=== PATIENT | female | born 1985 | race Caucasian/White ===

== ENCOUNTER 2017-07-28 21:14 | Emergency (ER) | payer MEDICAID, OTHER ==
[~2017-07-28] VITALS: Ht 157.5 cm; Wt 104.3 kg
[2017-07-28 21:39] VITALS: BP 141/65
--- NOTE | 2017-07-28 22:47 | NUR ---
PATIENT TO ER OF2.
--- NOTE | 2017-07-28 23:00 | NUR ---
PATIENT BEING EVALUATED BY DR. CUELLO.
[2017-07-28 23:45] VITALS: BP 132/67
--- NOTE | 2017-07-28 23:45 | NUR ---
Patient discharged with v/s stable. Written and verbal after care instructions given and explained. Patient alert, oriented and verbalized understanding of instructions. Ambulatory with steady gait. All questions addressed prior to discharge. ID band removed. Patient advised to follow up with PMD. Rx of Ibuprofen and Flexeril given. Patient educated on indication of medication including possible reaction and side effects. Opportunity to ask questions provided and answered.
== END 2017-07-28 23:45 | disposition home or self-care (01) ==
LOC: MED 21:14
DX: S13.4XXA Sprain of ligaments of cervical spine, initial encounter (principal); M25.512 Pain in left shoulder; R03.0 Elevated blood-pressure reading, without diagnosis of hypertension; J45.909 Unspecified asthma, uncomplicated; V49.49XA Driver injured in collision with other motor vehicles in traffic accident, initial encounter; Y93.89 Activity, other specified; Y92.89 Other specified places as the place of occurrence of the external cause; Y99.8 Other external cause status
CPT/HCPCS: 71010; 73030; 99284

== ENCOUNTER 2019-08-25 19:57 | Emergency (ER) | payer SELFPAY ==
[~2019-08-25] VITALS: Ht 157.5 cm; Wt 106.6 kg
[2019-08-25 20:06] VITALS: BP 129/84
--- NOTE | 2019-08-25 20:10 | NUR ---
PT TAKEN TO BED 3
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
--- NOTE | 2019-08-25 21:09 | NUR ---
Dr. De La Cruz examining patient.
[2019-08-25] MEDS ORDERED: KETOROLAC 30 MG/ML VIAL IM ONE (21:45)
--- NOTE | 2019-08-25 22:02 | NUR ---
PT RETURN FROM XRAY
[2019-08-25 23:51] VITALS: BP 119/84
== END 2019-08-25 23:51 | disposition home or self-care (01) ==
LOC: MED 19:57
DX: S13.9XXA Sprain of joints and ligaments of unspecified parts of neck, initial encounter (principal); M54.5 Low back pain; J45.909 Unspecified asthma, uncomplicated; V49.49XA Driver injured in collision with other motor vehicles in traffic accident, initial encounter; Y93.89 Activity, other specified; Y92.488 Other paved roadways as the place of occurrence of the external cause; Y99.8 Other external cause status
CPT/HCPCS: 72050; 81002; 81025; 96372; 99283; J1885